=== PATIENT | female | born 1935 | race Caucasian/White ===

== ENCOUNTER 2020-04-23 15:52 | Emergency (ER) | payer OTHER, MEDICAID ==
[~2020-04-23] VITALS: Ht 157.5 cm; Wt 73.0 kg
[2020-04-23] MEDS ORDERED: CALC-1029 PO (16:13)
[2020-04-23] MEDS ORDERED: ALEN70TA6 PO (16:13)
[2020-04-23] MEDS ORDERED: CHOL10002 PO (16:13)
[2020-04-23] MEDS ORDERED: METF-440 PO (16:13)
[2020-04-23 16:24] LABS: *BILIRUBIN,URIN 1+ (NEGATIVE); *CLARITY,URINE CLOUDY (CLEAR); *COLOR,URINE DARK YELLOW (YELLOW); *KETONES,URINE TRACE (NEGATIVE); LEUKOCYTE ESTERASE ,URINE 3+ (NEGATIVE); NITRITE, URINE NEGATIVE (NEGATIVE); PH,URINE 8.5 (5.0-8.0); UGLUCOSE NEGATIVE (NEGATIVE)
[2020-04-23 16:31] LABS: *BLOOD, URINE TRACE (NEGATIVE)
[2020-04-23 16:32] LABS: BACTERIA,URINE MANY /HPF (NONE SEEN); MUCUS,URINE MANY /LPF (0-FEW); SQUAMOUS EPITHELIAL CELL,UR MANY /HPF (NONE SEEN); WBC,URINE 80-100 /HPF (0-3)
[2020-04-23] MEDS ORDERED: SULFAMETH/TRIMETH 800/160 MG TABLET PO ONE (16:45)
[2020-04-23] MEDS ORDERED: SULFAMETH/TRIMETH 800/160 MG TABLET ONE (16:57)
--- NOTE | 2020-04-23 17:07 | NUR ---
Patient is for discharged back to [facility] home. Written and verbal after care instructions given to patient, patient's caregiver Julian. Patient and caregiver verbalized understanding of instructions. Stressed follow up or return to ER for worsening s/s. S ambulance [id number]=[id number] with TRIP# [id number]
--- NOTE | 2020-04-23 18:13 | NUR ---
Patient is eating hot dinner tray with good appetite. NAD
--- NOTE | 2020-04-23 18:49 | NUR ---
Discharge instructions given to EMT Jessee & José Antonio [id number]. Patient left ER in stable condition.
== END 2020-04-23 18:50 ==
LOC: ER 15:54
DX: N39.0 Urinary tract infection, site not specified (principal); Z87.440 Personal history of urinary (tract) infections; B96.89 Other specified bacterial agents as the cause of diseases classified elsewhere
CPT/HCPCS: 87077; 87086; A4663